=== PATIENT | male | born 1965 | race Caucasian/White ===

== ENCOUNTER → 2020-08-10 | Outpatient (CLI) | payer OTHER ==
[~2020-08-10] MED LIST: NO MEDS; NOHOMEMEDICATIONS; NORCO 5-325 TA1 EACH PO; TOBREX5 ML OP
== END ==
LOC: CAT 10:22
PROVIDERS: ATTEND Family Medicine
DX: Z13.6 Encounter for screening for cardiovascular disorders (principal); I25.10 Atherosclerotic heart disease of native coronary artery without angina pectoris; E78.00 Pure hypercholesterolemia, unspecified